=== PATIENT | male | born 1965 | race Caucasian/White ===

== ENCOUNTER 2018-07-17 15:23 | Emergency (ER) | payer BC, OTHER ==
[2018-07-17 16:15] VITALS: BP 144/95
--- NOTE | 2018-07-17 16:40 | UC ---
Throat Pain/Nasal Sim HPI - HPI Summary HPI Summary: 53 year old male with 3 day history of fever (102 F), general malaise, sore throat, nasal congestion, and non-productive cough. Denies ear pain, dysphagia, chest pain, shortness of breath, abdominal pain, nausea, or vomiting. Has not received flu shot. - History of Current Complaint Chief Complaint: UCRespiratory Stated Complaint: COUGH/SORE THROAT/FEVER Time Seen by Provider: 07/17/18 16:07 Hx Obtained From: Patient Onset/Duration: Gradual Onset, Lasting Days - 3 Severity: Mild Pain Intensity: 2 Cough: Nonproductive Associated Signs & Symptoms: Positive: Nasal Discharge, Fever. Negative: Dysphagia, Wheezing, Sinus Discomfort, Vomiting, Rash - Allergies/Home Medications Allergies/Adverse Reactions: Allergies Allergy/AdvReac Type Severity Reaction Status Date / Time No Known Allergies Allergy Verified 07/17/18 16:11 Home Medications: Home Medications Lisinopril TAB* [Prinivil TAB*] 40 mg PO DAILY 07/17/18 [History Confirmed 07/17] Pravastatin Sodium 40 mg PO DAILY 07/17/18 [History Confirmed 07/17/18] PMH/Surg Hx/FS Hx/Imm Hx Endocrine History: Dyslipidemia Cardiovascular History: Hypertension GI/ History: Gastroesophageal Reflux - Surgical History Surgical History: Yes Surgery Procedure, Year, and Place: VASECTOMY - Family History Family History: Noncontributory - Social History Occupation: Employed Full-time Lives: With Family Alcohol Use: Occasionally Substance Use Type: None Smoking Status (MU): Former Smoker Have You Smoked in the Last Year: No When Did the Patient Quit Smoking/Using Tobacco: 2006 Review of Systems All Other Systems Reviewed And Are Negative: Yes Constitutional: Positive: Fever Skin: Positive: Negative Eyes: Positive: Negative ENT: Positive: Sore Throat, Nasal Discharge Respiratory: Positive: Cough Cardiovascular: Positive: Negative Gastrointestinal: Positive: Negative Is Patient Immunocompromised?: No Physical Exam Triage Information Reviewed: Yes Appearance: No Pain Distress, Well-Nourished Vital Signs: Initial Vital Signs Temp 97.9 F 07/17/18 16:09 Pulse 87 07/17/18 16:09 Resp 16 07/17/18 16:09 BP 144/95 07/17/18 16:09 Pulse Ox 98 07/17/18 16:09 Vital Signs Reviewed: Yes Eyes: Positive: Conjunctiva Clear. Negative: Discharge ENT: Positive: Pharyngeal erythema, Nasal congestion, TMs normal, Uvula midline. Negative: Nasal drainage, Tonsillar swelling, Tonsillar exudate, Trismus, Sinus tenderness Neck: Positive: Supple, Nontender, No Lymphadenopathy Respiratory: Positive: Lungs clear, No respiratory distress, No accessory muscle use Cardiovascular: Positive: RRR, No Murmur Neurological: Positive: Alert Skin Exam: Normal Diagnostics - Laboratory Diagnostic Studies Completed/Ordered: Rapid flu negative Throat Pain/Nasal Course/Dx - Course Course Of Treatment: 53 year old male with 3 day history of fever (102 F), general malaise, sore throat, nasal congestion, and non-productive cough. Currently afebrile. Exam consistent with viral URI. Rapid flu negative. Recommend symptomatic treatment. He is to follow up with PCP in symptoms persist. Warning symptoms reviewed. Verbalizes understanding and agrees with POC. - Differential Dx/Diagnosis Differential Diagnosis/HQI/PQRI: Influenza, Pharyngitis, Tonsillitis, URI Provider Diagnoses: Viral URI Discharge - Sign-Out/Discharge Documenting (check all that apply): Patient Departure All imaging exams completed and their final reports reviewed: No Studies - Discharge Plan Condition: Stable Disposition: HOME Prescriptions: Benzonatate CAP* [Tessalon 100 MG CAP*] 100 mg PO TID PRN #30 cap PRN Reason: Cough Patient Education Materials: Upper Respiratory Infection (ED) Referrals: Jillian Arriola NP [Primary Care Provider] - Additional Instructions: Your rapid flu test in the clinic tonight was negative. I suspect your symptoms are consistent with a viral upper respiratory infection. These are most often caused by viruses and do not respond to antibiotics. They will typically run their course over 7-10 days. Get plenty of rest. Drink lots of fluids to stay well hydrated especially if you are running a fever. Use a nasal rinse such as Neti Pot or NeilMed to help keep nasal secretions thin and promote drainage. Use an over the counter fluticasone (Flonase) nasal spray 2 sprays each nostril once a day. Use Tessalon Perles 1 cap every 8 hours as needed for cough. Use salt water gargles several times a day for the sore throat. You can also use Chloraseptic spray or Cepacol lozenges for some temporary pain relief from the sore throat. Take acetaminophen (Tylenol) according to directions as needed for aches, pain, or fever. Follow up with your primary care provider in 7 days if symptoms persist. Seek immediate medical attention in the emergency room if you have persistent fever greater than 100.5 F despite taking acetaminophen, have chest pain, shortness of breath, or any worsening of symptoms. - Billing Disposition and Condition Condition: STABLE Disposition: Home
== END 2018-07-17 17:19 | disposition home or self-care (01) ==
LOC: UCCORT 15:23
DX: J06.9 Acute upper respiratory infection, unspecified (principal); E78.5 Hyperlipidemia, unspecified; I10 Essential (primary) hypertension; Z87.891 Personal history of nicotine dependence
CPT/HCPCS: 99212; G0463

== ENCOUNTER 2018-10-17 13:45 | Emergency (ER) | payer OTHER ==
[2018-10-17 14:51] VITALS: BP 135/78
--- NOTE | 2018-10-17 15:10 | ED ---
Back Pain - HPI Summary HPI Summary: 53 yr old male with the complaint of low back pain. Onset of pain was two days ago. 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 He complains of pain that is worse with bending over. pain is moderate. No bowel or bladder incontinence. no numbness or weakness in the legs. No other complaints. - History of Current Complaint Chief Complaint: UCBackPain Stated Complaint: LOWER BACK PAIN Time Seen by Provider: 10/17/18 15:01 Pain Intensity: 4 - Allergies/Home Medications Allergies/Adverse Reactions: Allergies Allergy/AdvReac Type Severity Reaction Status Date / Time No Known Allergies Allergy Verified 10/17/18 14:51 Home Medications: Home Medications Cyclobenzaprine TAB* [Flexeril 10 MG TAB*] 10 mg PO TID PRN 10/17/18 [History Confirmed 10/17/18] Ibuprofen TAB* [Motrin TAB* 800 MG] 800 mg PO ONCE 10/17/18 [History Confirmed 10/17/18] PMH/Surg Hx/FS Hx/Imm Hx Cardiovascular History: Reports: Hx Hypertension - Surgical History Surgery Procedure, Year, and Place: VASECTOMY Infectious Disease History: No Infectious Disease History: Denies: Traveled Outside the [place] in Last 30 Days - Family History Family History: Noncontributory - Social History Alcohol Use: Occasionally Substance Use Type: Reports: None Smoking Status (MU): Former Smoker Have You Smoked in the Last Year: No Review of Systems Constitutional: Negative Positive: Other - low back pain All Other Systems Reviewed And Are Negative: Yes Physical Exam Triage Information Reviewed: Yes Vital Signs On Initial Exam: Initial Vitals Temp Pulse Resp BP Pulse Ox 99.1 F 86 16 135/78 100 10/17/18 14:48 10/17/18 14:48 10/17/18 14:48 10/17/18 14:48 10/17/18 14:48 Vital Signs Reviewed: Yes Appearance: Positive: Well-Appearing, No Pain Distress Skin: Positive: Warm, Skin Color Reflects Adequate Perfusion Head/Face: Positive: Normal Head/Face Inspection Eyes: Positive: EOMI ENT: Positive: Normal ENT inspection Neck: Positive: Supple Respiratory/Lung Sounds: Positive: Clear to Auscultation, Breath Sounds Present Cardiovascular: Positive: RRR. Negative: Murmur Abdomen Description: Positive: Soft. Negative: Distended Musculoskeletal: Positive: Strength/ROM Intact, Other - the patient has some tenderness to the low right paraspinal muscles on palpation. No bruise, no deformity. Neurological: Positive: Sensory/Motor Intact, Alert, Oriented to Person Place, Time, CN Intact II-III, Normal Gait, Speech Normal Psychiatric: Positive: Normal - [place] Coma Scale Best Eye Response: 4 - Spontaneous Best Motor Response: 6 - Obeys Commands Best Verbal Response: 5 - Oriented Coma Scale Total: 15 Diagnostics - Vital Signs Vital Signs Temp Pulse Resp BP Pulse Ox 10/17/18 14:48 99.1 F 86 16 135/78 100 - Laboratory Lab Statement: Any lab studies that have been ordered have been reviewed, and results considered in the medical decision making process. - Radiology lumbar spine Radiology Interpretation Completed By: Radiologist - DJD spine, and calcification in the aorta, gall stones - CT abd pelvis CT Interpretation Completed By: Radiologist - gallstones, djd spine, athersclerosis aorta. No AAA mentioned. Back Pain Course/Dx - Course Course Of Treatment: 53 yr old with low back pain. 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 He has been referred to follow up for primary care. - Diagnoses Provider Diagnoses: Lumbar strain, Cholelithiasis, Atherosclerosis of abdominal aorta Discharge - Sign-Out/Discharge Documenting (check all that apply): Patient Departure All imaging exams completed and their final reports reviewed: Yes - Discharge Plan Condition: Good Disposition: HOME Patient Education Materials: Low Back Strain (ED), Arthritis (ED), Gallstones ( ED) Referrals: Jillian Arriola NP [Primary Care Provider] - 2 Days Additional Instructions: You have some build of plaque in your aorta as well. This is best managed with close follow up with your primary doctor to manage risk factors like cholesterol , blood sugar, high blood pressure etc.. - Billing Disposition and Condition Condition: GOOD Disposition: Home
== END 2018-10-17 16:39 | disposition home or self-care (01) ==
LOC: UCCORT 13:45
DX: S39.012A Strain of muscle, fascia and tendon of lower back, initial encounter (principal); I70.0 Atherosclerosis of aorta; I10 Essential (primary) hypertension; K80.20 Calculus of gallbladder without cholecystitis without obstruction; Z87.891 Personal history of nicotine dependence; X50.0XXA Overexertion from strenuous movement or load, initial encounter; Y92.9 Unspecified place or not applicable
CPT/HCPCS: 72110; 74176; 99211; G0463